=== PATIENT | female | born 1995 | race Caucasian/White ===

== ENCOUNTER 2022-05-09 14:54 | Outpatient (CLI) | payer OTHER, SELFPAY ==
[2022-05-09 18:49] LABS: Chlamydia DNA Amplified* NOT DETECTED (No Detected); GC DNA Amplified* NOT DETECTED (No Detected)
== END 2022-05-09 14:55 | disposition home or self-care (01) ==
LOC: NFLDREF 14:54
PROVIDERS: Visit Provider Physician Assistant
DX: Z01.419 Encounter for gynecological examination (general) (routine) without abnormal findings (principal); Z11.3 Encounter for screening for infections with a predominantly sexual mode of transmission
CPT/HCPCS: 87491; 87591

== ENCOUNTER 2023-11-07 16:01 | Outpatient (CLI) | payer OTHER, SELFPAY ==
[2023-11-07 19:12] LABS: Chlamydia DNA Amplified* NOT DETECTED (No Detected); GC DNA Amplified* NOT DETECTED (No Detected)
== END 2023-11-07 16:02 | disposition home or self-care (01) ==
LOC: NFLDREF 16:02
PROVIDERS: Visit Provider Registered Nurse
DX: Z11.3 Encounter for screening for infections with a predominantly sexual mode of transmission (principal)
CPT/HCPCS: 87491; 87591

== ENCOUNTER 2025-03-22 12:44 | Outpatient (CLI) | payer BC, SELFPAY | END 2025-03-22 12:45 | disposition home or self-care (01) | LOC: NFLDREF 03-28 18:29 | PROVIDERS: Visit Provider Registered Nurse | DX: Z13.9 Encounter for screening, unspecified (principal) | CPT/HCPCS: 82947 ==

== ENCOUNTER 2025-04-01 15:00 | Outpatient (CLI) | payer BC, SELFPAY | END 2025-04-01 15:01 | disposition home or self-care (01) | PROVIDERS: PCP Family Medicine; Visit Provider Family Medicine | DX: I10 Essential (primary) hypertension (principal); R03.0 Elevated blood-pressure reading, without diagnosis of hypertension; Z13.6 Encounter for screening for cardiovascular disorders | CPT/HCPCS: 80053; 80061; 84443 ==